=== PATIENT | male | born 1995 | race Caucasian/White ===

== ENCOUNTER 2019-02-20 21:08 | Emergency (ER) | payer OTHER ==
[2019-02-20 21:33] VITALS: BP 114/73
--- NOTE | 2019-02-20 21:41 | UC ---
Throat Pain/Nasal Aj HPI - HPI Summary HPI Summary: Per newspaper reporter: ""Burning pain" in throat when burping, eating, and swallowing for one to two days. A little sore throat constantly. When asked, positive nasal discharge, PND, cough to clear mucus in throat, and "tired". When asked, denies fever, headache, ear pain, decreased appetite, NVD, abdominal pain, myalgias, chills, or sweats. Patient had nausea with vomiting that resolved the day before sore throat started. Patient's father is at bedside." -has a lot of nasal congestiona dna lot of coughing, no wheezing. -no fevers, no swollen glands. no exudate. no rash. - History of Current Complaint Chief Complaint: UCGeneralIllness Stated Complaint: SORE THROAT Time Seen by Provider: 02/20/19 21:25 Pain Intensity: 7 - Allergies/Home Medications Allergies/Adverse Reactions: Allergies Allergy/AdvReac Type Severity Reaction Status Date / Time No Known Allergies Allergy Verified 02/20/19 21:30 Home Medications: Home Medications Ibuprofen TAB* [Advil TAB*] 400 - 600 mg PO Q6H PRN 02/20/19 [History Confirmed 02/20/19] PMH/Surg Hx/FS Hx/Imm Hx Previously Healthy: Yes - Surgical History Surgical History: Yes Surgery Procedure, Year, and Place: APPY 01/2012, TUBES IN EARS - Social History Alcohol Use: None Substance Use Type: None Smoking Status (MU): Never Smoked Tobacco - Immunization History Vaccination Up to Date: Yes Review of Systems All Other Systems Reviewed And Are Negative: Yes Constitutional: Positive: Fatigue Skin: Positive: Negative. Negative: Rash Eyes: Positive: Negative ENT: Positive: Sore Throat, Ear Ache, Nasal Discharge, Sinus Congestion. Negative: Sinus Pain/Tenderness Respiratory: Positive: Cough. Negative: Shortness Of Breath Cardiovascular: Positive: Negative Gastrointestinal: Positive: Negative Genitourinary: Positive: Negative Motor: Positive: Negative Neurovascular: Positive: Negative Musculoskeletal: Positive: Negative Neurological: Positive: Negative Psychological: Positive: Negative Is Patient Immunocompromised?: No Physical Exam Triage Information Reviewed: Yes Appearance: Well-Appearing, No Pain Distress, Well-Nourished Vital Signs: Initial Vital Signs Temp 99.2 F 02/20/19 21:25 Pulse 98 02/20/19 21:25 Resp 18 02/20/19 21:25 BP 114/73 02/20/19 21:25 Pulse Ox 98 02/20/19 21:25 Vital Signs Reviewed: Yes Eye Exam: Normal ENT: Positive: Nasal congestion, Nasal drainage, TMs normal, Uvula midline. Negative: Tonsillar swelling, Tonsillar exudate, Sinus tenderness Dental: Positive: Other: - very poor dentition with severely decayed teeth. Neck exam: Normal Neck: Positive: Supple, Nontender, No Lymphadenopathy Respiratory Exam: Normal Respiratory: Positive: Lungs clear, Normal breath sounds, No respiratory distress, No accessory muscle use. Negative: Crackles, Rhonchi, Stridor, Wheezing Cardiovascular Exam: Normal Cardiovascular: Positive: RRR, No Murmur, Pulses Normal Abdominal Exam: Normal Neurological Exam: Normal Psychological Exam: Normal Skin Exam: Normal Skin: Negative: Rashes Throat Pain/Nasal Course/Dx - Course Course Of Treatment: not c/w strep - no fever, no exudate, no LAD. + congestion and cough. lungs CTA -no bacteria infection. supportive care - Differential Dx/Diagnosis Differential Diagnosis/HQI/PQRI: Pharyngitis, URI Provider Diagnosis: Upper respiratory infection Discharge - Sign-Out/Discharge Documenting (check all that apply): Patient Departure All imaging exams completed and their final reports reviewed: No Studies - Discharge Plan Condition: Stable Disposition: HOME Patient Education Materials: Upper Respiratory Infection (DC) Referrals: Arden Simental PA [Primary Care Provider] - 1 Week Additional Instructions: There is no evidence for any bacterial infection at this time. Fluids, rest. tylenol or ibuprofen can be helpful. - Billing Disposition and Condition Condition: STABLE Disposition: Home
== END 2019-02-20 21:49 | disposition home or self-care (01) ==
LOC: UCCORT 21:08
DX: J06.9 Acute upper respiratory infection, unspecified (principal)
CPT/HCPCS: 99202; G0463